=== PATIENT | male | born 1950 | race Caucasian/White ===

== ENCOUNTER 2023-01-23 19:04 | Inpatient (IN) | payer OTHER, MEDICAID ==
[~2023-01-23] VITALS: Ht 167.6 cm; Wt 76.7 kg
[2023-01-23 19:24] VITALS: BP 156/68
[2023-01-23 19:55] LABS: BASO # 0.1 10*3/uL (0.0-0.1); BASO % 0.7 % (0.0-1.0); EOS # 0.2 10*3/uL (0.0-0.4); EOS % 2.3 % (1.0-4.0); LYMPH # 2.7 10*3/uL (1.3-4.4); LYMPH % 35.9 % (27.0-41.0); MEAN CELL VOLUME 87.8 fl (80.0-94.0); MEAN CORPUSCULAR HGB 28.9 pg (27.0-31.0); MEAN CORPUSCULAR HGB CONC 32.9 g/dl (33.0-37.0); MEAN PLATELET VOLUME 10.6 fl (9.6-12.3); MONO # 0.6 10*3/uL (0.1-1.0); MONO % 8.2 % (3.0-9.0); NEUT % 52.8 % (47.0-73.0); PLATELET COUNT AUTOMATED 194 10*3/uL (130-400); RED BLOOD COUNT 4.67 10*6/uL (4.50-5.90); RED CELL DISTRI WIDTH 14.6 % (0-14.5); WHITE BLOOD COUNT 7.5 10*3/uL (4.8-10.8)
[2023-01-23 20:11] LABS: BUN 24 mg/dl (9-23); CHLORIDE 103 mmol/L (98-107); POTASSIUM 4.4 mmol/L (3.4-5.1)
[2023-01-23 20:18] LABS: ETHYL ALCOHOL < 3.0 mg/dl (<3)
[2023-01-23 20:32] LABS: BILIRUBIN Negative (Negative); BLOOD Trace-Lysed (Negative); CLARITY Clear (Clear); COLOR Yellow (Yellow); GLUCOSE 3+ (Negative); KETONE Negative (Negative); LEUKO ESTERASE Negative (Negative); NITRITE Negative (Negative); SPECIFIC GRAVITY >= 1.030 (1.001-1.030); UROBILINOGEN 0.2 E.U./dl (0.0-1.0)
[2023-01-23 20:39] LABS: URINE AMPHETAMINES Negative (1000ng/ml); URINE BARBITURATES Negative (200ng/ml); URINE BENZODIAZEPINES Negative (200ng/ml); URINE CANNABINOIDS (THC) Negative (50ng/ml); URINE COCAINE Negative (300ng/ml); URINE METHADONE Negative (300ng/ml); URINE OPIATES Negative (300ng/ml); URINE PHENCYCLIDINE Negative (25ng/ml)
[2023-01-23 21:38] LABS: WBC 0-2 wbc/hpf (0-5)
[2023-01-23 23:45] VITALS: BP 145/76
[2023-01-24] MEDS ORDERED: LIPITOR10 MG PO (00:32)
[2023-01-24] MEDS ORDERED: VITAMIN D325 MCG PO (00:34)
[2023-01-24] MEDS ORDERED: COZAAR50 M1 PO (00:35)
[2023-01-24] MEDS ORDERED: CYMBALTA20 M1 PO (00:36)
[2023-01-24] MEDS ORDERED: LEXAPRO20 MG PO (00:37)
[2023-01-24] MEDS ORDERED: EXELON1 EACH T (00:38)
[2023-01-24] MEDS ORDERED: NEURONTIN300 MG PO (00:39)
[2023-01-24] MEDS ORDERED: MUCINEX ER600 MG PO (00:40)
[2023-01-24] MEDS ORDERED: JARDIANCE25 MG PO (00:41)
[2023-01-24] MEDS ORDERED: LANTUS SOL100 UNIT/1 SC (00:42)
[2023-01-24] MEDS ORDERED: NICODERM CQ1 EAC1 TD (00:45)
[2023-01-24] MEDS ORDERED: PIOGLITAZONE HC30 MG PO (00:46)
[2023-01-24] MEDS ORDERED: VISTARIL25 MG PO (00:47)
[2023-01-24 08:00] VITALS: BP 106/58
[2023-01-24 08:07] LABS: THYROID STIM HORMONE (HS) 3.905 uIU/ml (0.550-4.780)
[2023-01-24 08:30] LABS: VITAMIN D, 25-HYDROXY 26.2 ng/mL (30-100)
[2023-01-24 20:00] VITALS: BP 124/66
[2023-01-25 07:27] VITALS: BP 116/60
[2023-01-25 20:00] VITALS: BP 112/62
[2023-01-26 09:38] VITALS: BP 153/78
[2023-01-26 20:00] VITALS: BP 100/54
[2023-01-27 08:48] VITALS: BP 125/56
[2023-01-27 20:00] VITALS: BP 116/60
[2023-01-28 08:13] VITALS: BP 128/58
[2023-01-28 20:00] VITALS: BP 113/56
[2023-01-29 07:20] VITALS: BP 144/49
[2023-01-29 20:00] VITALS: BP 125/73
[2023-01-30 07:18] VITALS: BP 147/84
[2023-01-30 20:00] VITALS: BP 112/54
[2023-01-31 07:30] VITALS: BP 148/68
[2023-01-31 20:00] VITALS: BP 125/68
[2023-02-01 05:50] LABS: ALKALINE PHOSPHATASE 78 U/L (46-116); BUN 20 mg/dl (9-23); CHLORIDE 103 mmol/L (98-107); POTASSIUM 4.1 mmol/L (3.4-5.1); SGPT/ALT 20 U/L (10-49); TOTAL PROTEIN 7.1 gm/dL (6.0-8.0)
[2023-02-01 06:10] LABS: BASO % 0.5 % (0.0-1.0); EOS # 0.1 10*3/uL (0.0-0.4); EOS % 1.1 % (1.0-4.0); HEMATOCRIT 41.5 % (42.0-52.0); LYMPH # 2.1 10*3/uL (1.3-4.4); LYMPH % 36.7 % (27.0-41.0); MEAN CELL VOLUME 89.4 fl (80.0-94.0); MEAN CORPUSCULAR HGB 28.7 pg (27.0-31.0); MEAN PLATELET VOLUME 9.7 fl (9.6-12.3); MONO # 0.4 10*3/uL (0.1-1.0); MONO % 7.5 % (3.0-9.0); PLATELET COUNT AUTOMATED 285 10*3/uL (130-400); RED BLOOD COUNT 4.64 10*6/uL (4.50-5.90); RED CELL DISTRI WIDTH 14.6 % (0-14.5); WHITE BLOOD COUNT 5.6 10*3/uL (4.8-10.8)
[2023-02-01 07:32] VITALS: BP 165/82
[2023-02-01 12:29] LABS: BILIRUBIN Negative (Negative); BLOOD Trace-Lysed (Negative); CLARITY Clear (Clear); COLOR Yellow (Yellow); GLUCOSE 3+ (Negative); KETONE 1+ (Negative); LEUKO ESTERASE Negative (Negative); NITRITE Negative (Negative); PH 5.5 (4.5-8.0); SPECIFIC GRAVITY >= 1.030 (1.001-1.030); UROBILINOGEN 0.2 E.U./dl (0.0-1.0)
[2023-02-01 12:45] LABS: WBC 21-30 wbc/hpf (0-5); YEAST 2+
[2023-02-01 20:30] VITALS: BP 119/65
[2023-02-02 07:20] VITALS: BP 134/59
[2023-02-02 20:00] VITALS: BP 107/62
[2023-02-03 07:26] VITALS: BP 152/93
[2023-02-03 20:00] VITALS: BP 108/58
[2023-02-04 07:14] VITALS: BP 113/69
[2023-02-04 20:00] VITALS: BP 113/63
[2023-02-05 08:20] VITALS: BP 123/68
[2023-02-05 20:00] VITALS: BP 120/66
[2023-02-06 08:00] VITALS: BP 127/59
[2023-02-06 20:00] VITALS: BP 121/58
[2023-02-07 08:20] VITALS: BP 102/50
[2023-02-07 20:00] VITALS: BP 110/78
[2023-02-08 07:56] VITALS: BP 111/60
[2023-02-08 20:00] VITALS: BP 122/78
[2023-02-09 20:00] VITALS: BP 105/43
[2023-02-10 08:00] VITALS: BP 127/67
[2023-02-10 20:00] VITALS: BP 105/79
[2023-02-11 08:16] VITALS: BP 107/61
[2023-02-11 12:06] LABS: BASO % 0.4 % (0.0-1.0); EOS # 0.1 10*3/uL (0.0-0.4); EOS % 1.1 % (1.0-4.0); LYMPH # 1.8 10*3/uL (1.3-4.4); LYMPH % 24.5 % (27.0-41.0); MEAN CELL VOLUME 90.5 fl (80.0-94.0); MEAN CORPUSCULAR HGB 29.4 pg (27.0-31.0); MEAN CORPUSCULAR HGB CONC 32.5 g/dl (33.0-37.0); MONO # 0.7 10*3/uL (0.1-1.0); MONO % 10.4 % (3.0-9.0); NEUT # 4.5 10*3/uL (2.3-7.9); NEUT % 63.3 % (47.0-73.0); PLATELET COUNT AUTOMATED 157 10*3/uL (130-400); RED BLOOD COUNT 4.42 10*6/uL (4.50-5.90); RED CELL DISTRI WIDTH 14.6 % (0-14.5); WHITE BLOOD COUNT 7.1 10*3/uL (4.8-10.8)
[2023-02-11 12:31] LABS: POTASSIUM 4.5 mmol/L (3.4-5.1); TOTAL PROTEIN 6.7 gm/dL (6.0-8.0)
[2023-02-11 20:00] VITALS: BP 127/62
[2023-02-12 07:15] LABS: BUN 28 mg/dl (9-23); CHLORIDE 106 mmol/L (98-107); POTASSIUM 4.5 mmol/L (3.4-5.1)
[2023-02-12 07:39] VITALS: BP 130/82
[2023-02-12] MEDS ORDERED: MEMANTINE HCL10 MG PO (09:05)
[2023-02-12] MEDS ORDERED: HYDROXYZINE HCL25 MG PO ×2 (09:05)
[2023-02-12] MEDS ORDERED: DIVALPROEX SOD125 M1 PO (09:05)
[2023-02-12] MEDS ORDERED: VISTARIL IM (09:05)
[2023-02-12] MEDS ORDERED: RIVASTIGMINE1 EAC2 T (09:05)
[2023-02-12] MEDS ORDERED: INVEGA SUSTENN156 MG IM (09:05)
== END 2023-02-12 12:15 | DRG 883 ==
LOC: ED 19:04 → EDHOLD 23:02 → 3N 23:02
PROVIDERS: Counselor Professional; Internal Medicine; Physician Assistant; ADMIT Psychiatry & Neurology Psychiatry; ATTEND Psychiatry & Neurology Psychiatry
DX: F63.81 Intermittent explosive disorder (principal); N18.31 Chronic kidney disease, stage 3a; E11.65 Type 2 diabetes mellitus with hyperglycemia; F41.9 Anxiety disorder, unspecified; K21.9 Gastro-esophageal reflux disease without esophagitis; Z20.822 Contact with and (suspected) exposure to COVID-19; F31.9 Bipolar disorder, unspecified; G30.9 Alzheimer's disease, unspecified; F02.80 Dementia in other diseases classified elsewhere, unspecified severity, without behavioral disturbance, psychotic disturbance, mood disturbance, and anxiety; E55.9 Vitamin D deficiency, unspecified; Z79.4 Long term (current) use of insulin; D64.9 Anemia, unspecified; J44.9 Chronic obstructive pulmonary disease, unspecified; E78.5 Hyperlipidemia, unspecified; I12.9 Hypertensive chronic kidney disease with stage 1 through stage 4 chronic kidney disease, or unspecified chronic kidney disease; E11.22 Type 2 diabetes mellitus with diabetic chronic kidney disease; E11.42 Type 2 diabetes mellitus with diabetic polyneuropathy; F43.10 Post-traumatic stress disorder, unspecified